=== PATIENT | male | born 1990 | race Caucasian/White ===

== ENCOUNTER 2016-11-07 21:23 | Emergency (ER) | payer OTHER ==
[2016-11-07] MEDS ORDERED: ACETAMINOPHEN 325 MG TAB As Ordered ONE (23:20)
--- NOTE | 2016-11-07 23:26 | EDDOCDS ---
Nurse's Notes [facility] Name: Morris Caldwell Age: 25 yrs Sex: Male : 1990 Arrival Date: 11/07/2016 Time: 21:23 Bed TR7 Private MD: KWAME Diagnosis: Contusion of other part of head;Unspecified injury of head Presentation: 11/07 21:40 Presenting complaint: Patient states: that he was playing volley ball and fell ms18 backwards hitting his head. pt states that he felt a little dizzy and wanted to make sure he was ok. Pt drinking water with no issues in triage. This patient has no additional risk factors. Mechanism of Injury: resulted from playing sports. Adult Sepsis Screening: The patient does not have new or worsening altered mentation. Patient's respiratory rate is less than 22. Systolic blood pressure is greater than 100. Patient has a qSOFA score of 0- Negative Sepsis Screen. Suicide/Homicide risk assessment- the patient denies having any suicidal and/or homicidal ideations and does not present with any other emotional, behavioral or mental health complaints. Status: The patient is a dependent. Transition of care: patient was not received from another setting of care. 21:40 Acuity: FLAKITO Level 4 ms18 21:40 Method Of Arrival: Walkin/Carried/Asstd ms18 Triage Assessment: 21:42 General: Appears in no apparent distress, comfortable, Behavior is appropriate for age, ms18 cooperative. Pain: Location: forehead Pain currently is 2 out of 10 on a pain scale. HIV screening NA for this visit Offered previously. Neurological: Level of Consciousness is awake, alert, obeys commands, Oriented to person, place, time, Reports dizziness, headache. Respiratory: Airway is patent Respiratory effort is even, unlabored. GI: Abdomen is non- distended Denies nausea, vomiting. Derm: Skin is pink, warm & dry. normal. Historical: - Allergies: no known allergies; - Home Meds: 1. none - PMHx: none; - PSHx: none; - Social history: Smoking status: Patient states was never smoker of tobacco. No barriers to communication noted, The patient speaks fluent [place]. - Family history: Not pertinent. - : The pt / caregiver states he / she is not on anticoagulants. Home medication list is obtained from the patient. - Exposure Risk Screening:: None identified. Screenin:23 Screening information is obtained from the patient. Fall risk: No risks identified. jmb Assistance ADL's: requires no assistance with activities of daily living. Abuse/DV Screen: The patient / caregiver reports he/she is: not in a situation that causes fear, pain or injury. Nutritional screening: No deficits noted. Advance Directives: Currently, there is no health care proxy. There is no active DNR order. There is no living will. There is no Power of Director Medical. home support is adequate. Assessment: 23:23 General: Patient instructed on discharge instructions. Patient asked if there were any jmb questions regarding discharge, patient stated no. Patient signed discharge instructions. Patient discharged in stable condition. . Vital Signs: 21:24 BP 111 / 68; Pulse 88; Resp 18 S; Temp 97.2(O); Pulse Ox 98% on R/A; Weight 70.31 kg dd6 (R); Height 5 ft. 10 in. (177.80 cm) (R); 23:23 BP 112 / 60; Pulse 80; Resp 18; Temp 97.0(O); Pulse Ox 99% on R/A; Pain 0/10; jmb 21:24 Body Mass Index 22.24 (70.31 kg, 177.80 cm) dd6 Vitals: 21:24 Log In Time: November 07, 2016 at 21:22. dd6 [place] Coma Score: 21:40 Eye Response: spontaneous(4). Verbal Response: oriented(5). Motor Response: obeys ms18 commands(6). Total: 15. ED Course: 21:24 Patient visited by Rom Mark PCA. dd6 21:24 KWAME is Private Physician. dd6 21:24 Patient moved to Waiting dd6 21:30 Patient moved to Pre RCE dd6 21:42 Triage Initiated ms18 22:54 Patient moved to Triage 1 pml 23:01 Morris Niño PA is PHCP. mo1 23:01 Levy Winters DO is Attending Physician. mo1 23:08 Patient visited by Morris Niño PA. mo1 23:20 KWAME is Referral Physician. mo1 23:23 Patient moved to TR7 ar3 23:23 The patient / caregiver is instructed regarding the plan of care and ED course. jmb 23:23 No IV's were initiated during this patient's visit. No procedures done that require jmb assistance. Administered Medications: 23:22 Drug: Acetaminophen 975 mg [acetaminophen 325 mg tablet (3 tabs)] Route: PO; jmb Order Results: There are currently no results for this order. Outcome: 23:20 Discharge ordered by Provider. mo1 23:23 Discharge Assessment: Patient awake, alert and oriented x 3. No cognitive and/or jmb functional deficits noted. Patient verbalized understanding of disposition instructions. Patient awake and alert. obeys commands, Oriented to person, place and time. Patient verbalized understanding of disposition instructions. Patient has no functional deficits. patient administered narcotics - no. The following High Risk Discharge criteria are identified: None. Discharged to home ambulatory. Condition: stable. Discharge instructions given to patient, Instructed on discharge instructions, follow up and referral plans. Demonstrated understanding of instructions, Pt was receptive of discharge instructions/ teaching. No special radiology studies were completed. Property sent home with patient. 23:25 Patient left the ED. jmb Signatures: Rom Mark, PAINTER APPRENTICE PAINTER APPRENTICE dd6 Shivani Marks, PAINTER APPRENTICE PAINTER APPRENTICE ar3 Deb ChowRN RN Morris Shah PA PA mo1 Joseluis Brown RN RN jmb Smith, Mallory, RN RN ms18 MTDD
--- NOTE | 2016-11-07 23:26 | EDDOCDS ---
Physician Documentation [facility] Name: Morris Caldwell Age: 25 yrs Sex: Male : 1990 Arrival Date: 11/07/2016 Time: 21:23 Bed TR7 Private MD: KWAME Disposition: 11/07/16 23:20 Discharged to Home/Self Care. Impression: Contusion of other part of head, Unspecified injury of head. - Condition is Stable. - Discharge Instructions: Facial or Scalp Contusion, Head Injury, Adult. - Medication Reconciliation, Local Pharmacy Hours form. - Follow up: KWAME; When: Call to arrange an appointment; Reason: Recheck today's complaints, Continuance of care. - Problem is new. - Symptoms are unchanged. Historical: - Allergies: no known allergies; - Home Meds: 1. none - PMHx: none; - PSHx: none; - Social history: Smoking status: Patient states was never smoker of tobacco. No barriers to communication noted, The patient speaks fluent [place]. - Family history: Not pertinent. - : The pt / caregiver states he / she is not on anticoagulants. Home medication list is obtained from the patient. - Exposure Risk Screening:: None identified. Vital Signs: 11/07 21:24 BP 111 / 68; Pulse 88; Resp 18 S; Temp 97.2(O); Pulse Ox 98% on R/A; Weight 70.31 kg / dd6 155.01 lbs (R); Height 5 ft. 10 in. (177.80 cm) (R); 23:23 BP 112 / 60; Pulse 80; Resp 18; Temp 97.0(O); Pulse Ox 99% on R/A; Pain 0/10; jmb 21:24 Body Mass Index 22.24 (70.31 kg, 177.80 cm) dd6 [place] Coma Score: 21:40 Eye Response: spontaneous(4). Verbal Response: oriented(5). Motor Response: obeys ms18 commands(6). Total: 15. MDM: 23:19 Acetaminophen Tablet 975 mg PO once ordered. mo1 Administered Medications: 23:22 Drug: Acetaminophen 975 mg [acetaminophen 325 mg tablet (3 tabs)] Route: PO; sasha Signatures: Morris Niño PA PA mo1 Joseluis Brown RN RN jmb Darcy Chavira,MIROSLAVA RN ms18 TOM
--- NOTE | 2016-11-10 00:26 | EDDOCDS ---
Nurse's Notes [facility] Name: Morris Caldwell Age: 25 yrs Sex: Male : 1990 Arrival Date: 11/07/2016 Time: 21:23 Bed TR7 Private MD: KWAME Diagnosis: Contusion of other part of head;Unspecified injury of head Presentation: 11/07 21:40 Presenting complaint: Patient states: that he was playing volley ball and fell ms18 backwards hitting his head. pt states that he felt a little dizzy and wanted to make sure he was ok. Pt drinking water with no issues in triage. This patient has no additional risk factors. Mechanism of Injury: resulted from playing sports. Adult Sepsis Screening: The patient does not have new or worsening altered mentation. Patient's respiratory rate is less than 22. Systolic blood pressure is greater than 100. Patient has a qSOFA score of 0- Negative Sepsis Screen. Suicide/Homicide risk assessment- the patient denies having any suicidal and/or homicidal ideations and does not present with any other emotional, behavioral or mental health complaints. Status: The patient is a dependent. Transition of care: patient was not received from another setting of care. 21:40 Acuity: FLAKITO Level 4 ms18 21:40 Method Of Arrival: Walkin/Carried/Asstd ms18 Triage Assessment: 21:42 General: Appears in no apparent distress, comfortable, Behavior is appropriate for age, ms18 cooperative. Pain: Location: forehead Pain currently is 2 out of 10 on a pain scale. HIV screening NA for this visit Offered previously. Neurological: Level of Consciousness is awake, alert, obeys commands, Oriented to person, place, time, Reports dizziness, headache. Respiratory: Airway is patent Respiratory effort is even, unlabored. GI: Abdomen is non- distended Denies nausea, vomiting. Derm: Skin is pink, warm & dry. normal. Historical: - Allergies: no known allergies; - Home Meds: 1. none - PMHx: none; - PSHx: none; - Social history: Smoking status: Patient states was never smoker of tobacco. No barriers to communication noted, The patient speaks fluent Spanish. - Family history: Not pertinent. - : The pt / caregiver states he / she is not on anticoagulants. Home medication list is obtained from the patient. - Exposure Risk Screening:: None identified. Screenin:23 Screening information is obtained from the patient. Fall risk: No risks identified. jmb Assistance ADL's: requires no assistance with activities of daily living. Abuse/DV Screen: The patient / caregiver reports he/she is: not in a situation that causes fear, pain or injury. Nutritional screening: No deficits noted. Advance Directives: Currently, there is no health care proxy. There is no active DNR order. There is no living will. There is no Power of Clinical Rehab Specialist. home support is adequate. Assessment: 23:23 General: Patient instructed on discharge instructions. Patient asked if there were any jmb questions regarding discharge, patient stated no. Patient signed discharge instructions. Patient discharged in stable condition. . Vital Signs: 21:24 BP 111 / 68; Pulse 88; Resp 18 S; Temp 97.2(O); Pulse Ox 98% on R/A; Weight 70.31 kg dd6 (R); Height 5 ft. 10 in. (177.80 cm) (R); 23:23 BP 112 / 60; Pulse 80; Resp 18; Temp 97.0(O); Pulse Ox 99% on R/A; Pain 0/10; jmb 21:24 Body Mass Index 22.24 (70.31 kg, 177.80 cm) dd6 Vitals: 21:24 Log In Time: November 07, 2016 at 21:22. dd6 [place] Coma Score: 21:40 Eye Response: spontaneous(4). Verbal Response: oriented(5). Motor Response: obeys ms18 commands(6). Total: 15. ED Course: 21:24 Patient visited by Rom Mark PCA. dd6 21:24 KWAME is Private Physician. dd6 21:24 Patient moved to Waiting dd6 21:30 Patient moved to Pre RCE dd6 21:42 Triage Initiated ms18 22:54 Patient moved to Triage 1 pml 23:01 Morris Niño PA is PHCP. mo1 23:01 Levy Winters DO is Attending Physician. mo1 23:08 Patient visited by Morris Niño PA. mo1 23:20 KWAME is Referral Physician. mo1 23:23 Patient moved to TR7 ar3 23:23 The patient / caregiver is instructed regarding the plan of care and ED course. jmb 23:23 No IV's were initiated during this patient's visit. No procedures done that require jmb assistance. 11/08 10:01 T-Sheet-- Draft Copy was scanned into [employer] and attached to record. gb Administered Medications: 11/07 23:22 Drug: Acetaminophen 975 mg [acetaminophen 325 mg tablet (3 tabs)] Route: PO; jmb Order Results: There are currently no results for this order. Outcome: 23:20 Discharge ordered by Provider. mo1 23:23 Discharge Assessment: Patient awake, alert and oriented x 3. No cognitive and/or jmb functional deficits noted. Patient verbalized understanding of disposition instructions. Patient awake and alert. obeys commands, Oriented to person, place and time. Patient verbalized understanding of disposition instructions. Patient has no functional deficits. patient administered narcotics - no. The following High Risk Discharge criteria are identified: None. Discharged to home ambulatory. Condition: stable. Discharge instructions given to patient, Instructed on discharge instructions, follow up and referral plans. Demonstrated understanding of instructions, Pt was receptive of discharge instructions/ teaching. No special radiology studies were completed. Property sent home with patient. 23:25 Patient left the ED. jmb Signatures: Tangela Dennis, Reg Reg gb Rom Mark, PSYCHODRAMATIST PSYCHODRAMATIST dd6 Shivani Marks, PSYCHODRAMATIST PSYCHODRAMATIST ar3 Deb Chow,RN Morris Colvin PA PA mo1 Joseluis Brown RN RN jmb Smith, Mallory, RN RN ms18 Chart Complete MTDD
--- NOTE | 2016-11-10 00:26 | EDDOCDS ---
Physician Documentation [facility] Name: Morris Caldwell Age: 25 yrs Sex: Male : 1990 Arrival Date: 11/07/2016 Time: 21:23 Bed TR7 Private MD: KWAME Disposition: 11/07/16 23:20 Discharged to Home/Self Care. Impression: Contusion of other part of head, Unspecified injury of head. - Condition is Stable. - Discharge Instructions: Facial or Scalp Contusion, Head Injury, Adult. - Medication Reconciliation, Local Pharmacy Hours form. - Follow up: KWAME; When: Call to arrange an appointment; Reason: Recheck today's complaints, Continuance of care. - Problem is new. - Symptoms are unchanged. Historical: - Allergies: no known allergies; - Home Meds: 1. none - PMHx: none; - PSHx: none; - Social history: Smoking status: Patient states was never smoker of tobacco. No barriers to communication noted, The patient speaks fluent [place]. - Family history: Not pertinent. - : The pt / caregiver states he / she is not on anticoagulants. Home medication list is obtained from the patient. - Exposure Risk Screening:: None identified. Vital Signs: 11/07 21:24 BP 111 / 68; Pulse 88; Resp 18 S; Temp 97.2(O); Pulse Ox 98% on R/A; Weight 70.31 kg / dd6 155.01 lbs (R); Height 5 ft. 10 in. (177.80 cm) (R); 23:23 BP 112 / 60; Pulse 80; Resp 18; Temp 97.0(O); Pulse Ox 99% on R/A; Pain 0/10; jmb 21:24 Body Mass Index 22.24 (70.31 kg, 177.80 cm) dd6 [place] Coma Score: 21:40 Eye Response: spontaneous(4). Verbal Response: oriented(5). Motor Response: obeys ms18 commands(6). Total: 15. MDM: 23:19 Acetaminophen Tablet 975 mg PO once ordered. mo1 11/08 10:01 T-Sheet-- Draft Copy was scanned into [employer] and attached to record. gb Administered Medications: 11/07 23:22 Drug: Acetaminophen 975 mg [acetaminophen 325 mg tablet (3 tabs)] Route: PO; sasha Signatures: Tangela Dennis, Reg Reg gb Morris Niño PA PA mo1 Joseluis Brown,RN RN leslieb Darcy Chavira RN RN ms18 The chart was reviewed and I authenticate all verbal orders and agree with the evaluation and treatment provided.Attachments: 11/08 10:01 T-Sheet-- Draft Copy gb Chart Complete MTDD
--- NOTE | 2016-11-10 00:26 | EDDOCDS ---
Physician Documentation [facility] Name: Morris Caldwell Age: 25 yrs Sex: Male : 1990 Arrival Date: 11/07/2016 Time: 21:23 Bed TR7 Private MD: KWAME Disposition: 11/07/16 23:20 Discharged to Home/Self Care. Impression: Contusion of other part of head, Unspecified injury of head. - Condition is Stable. - Discharge Instructions: Facial or Scalp Contusion, Head Injury, Adult. - Medication Reconciliation, Local Pharmacy Hours form. - Follow up: KWAME; When: Call to arrange an appointment; Reason: Recheck today's complaints, Continuance of care. - Problem is new. - Symptoms are unchanged. Historical: - Allergies: no known allergies; - Home Meds: 1. none - PMHx: none; - PSHx: none; - Social history: Smoking status: Patient states was never smoker of tobacco. No barriers to communication noted, The patient speaks fluent [place]. - Family history: Not pertinent. - : The pt / caregiver states he / she is not on anticoagulants. Home medication list is obtained from the patient. - Exposure Risk Screening:: None identified. Vital Signs: 11/07 21:24 BP 111 / 68; Pulse 88; Resp 18 S; Temp 97.2(O); Pulse Ox 98% on R/A; Weight 70.31 kg / dd6 155.01 lbs (R); Height 5 ft. 10 in. (177.80 cm) (R); 23:23 BP 112 / 60; Pulse 80; Resp 18; Temp 97.0(O); Pulse Ox 99% on R/A; Pain 0/10; jmb 21:24 Body Mass Index 22.24 (70.31 kg, 177.80 cm) dd6 [place] Coma Score: 21:40 Eye Response: spontaneous(4). Verbal Response: oriented(5). Motor Response: obeys ms18 commands(6). Total: 15. MDM: 23:19 Acetaminophen Tablet 975 mg PO once ordered. mo1 11/08 10:01 T-Sheet-- Draft Copy was scanned into [employer] and attached to record. gb Administered Medications: 11/07 23:22 Drug: Acetaminophen 975 mg [acetaminophen 325 mg tablet (3 tabs)] Route: PO; sasha Signatures: Tangela Dennis, Reg Reg gb Morris Niño PA PA mo1 Joseluis Brown,RN RN leslieb Darcy Chavira RN RN ms18 The chart was reviewed and I authenticate all verbal orders and agree with the evaluation and treatment provided.Attachments: 11/08 10:01 T-Sheet-- Draft Copy gb Chart Complete MTDD
== END 2016-11-07 23:25 | disposition home or self-care (01) ==
LOC: M ED 21:23
DX: S00.93XA Contusion of unspecified part of head, initial encounter (principal); W18.09XA Striking against other object with subsequent fall, initial encounter; Y92.39 Other specified sports and athletic area as the place of occurrence of the external cause; Y93.68 Activity, volleyball (beach) (court); Y99.8 Other external cause status

== ENCOUNTER 2018-10-21 18:53 | Emergency (ER) | payer OTHER ==
[~2018-10-21] VITALS: Ht 175.3 cm; Wt 81.8 kg
[2018-10-21] MEDS ORDERED: IBUPROFEN 800 MG TAB PO ONE (19:30)
[2018-10-21] MEDS ORDERED: CEPHALEXIN 500 MG CAP PO ONE (19:45)
[2018-10-21] MEDS ORDERED: KEFL500C17 PO (20:14)
[2018-10-21 20:22] VITALS: BP 125/77
--- NOTE | 2018-10-22 07:43 | REP ---
Clinical: Trauma. Technique: AP, lateral, bilateral oblique views of the left fifth digit. Findings: Soft tissue laceration at the terminal tuft noted. No obvious acute fracture or dislocation identified. Impression: Laceration. No acute fracture. Electronically Signed by Sony Perry MD 10/22/2018 07:35 A
== END 2018-10-21 20:23 | disposition home or self-care (01) ==
LOC: M ED 18:53
DX: S62.602B Fracture of unspecified phalanx of right middle finger, initial encounter for open fracture (principal); S61.305A Unspecified open wound of left ring finger with damage to nail, initial encounter; W27.0XXA Contact with workbench tool, initial encounter; Y92.018 Other place in single-family (private) house as the place of occurrence of the external cause

== ENCOUNTER 2025-07-13 16:52 | Emergency (ER) | payer OTHER ==
[~2025-07-13] VITALS: Ht 175.3 cm; Wt 86.7 kg
[~2025-07-13 16:52] MED LIST: KEFL500C17 PO
[2025-07-13] MEDS: ONDANSETRON 4MG 2ML VIAL IV ONE (19:24)
[2025-07-13] MEDS: MORPHINE 4 MG/ML 1 ML VIAL IV PRN ×2 (19:25→20:37)
[2025-07-13] MEDS: TETANUS/DIPHTH/ACEL. PERTUSSIS 0.5 ML SYR IM.IMMUN ONE (19:43)
[2025-07-13] MEDS ORDERED: ceFAZolin SOD 2 GM in DEXTROSE 5% (D5W) ADV/MINI-BAG 50 ML IV ONE (20:05)
[2025-07-13] MEDS ORDERED: CEPHALEXIN 500 MG CAP PO ONE (20:15)
[2025-07-13] MEDS ORDERED: CEPH500C PO (20:16)
[2025-07-13] MEDS: LIDOCAINE 1% MDV 20 ML VIAL IM ONE (20:40)
[2025-07-13] MEDS: ceFAZolin SODIUM 2 GM in DEXTROSE 5% (D5W) ADV/MINI-BAG 50 ML IV ONE (21:04)
[2025-07-13] MEDS: NS (Normal Saline) 0.9% 1,000 ML IV ONE (21:15)
[2025-07-13] MEDS: NEOSPORIN TOP OINT 15 GM TOP ONE (21:43)
[2025-07-13 23:08] VITALS: BP 112/78; TEMP 97.6; O2SAT 96
[2025-07-13] MEDS ORDERED: AMOX875T2 PO (23:21)
[2025-07-13] MEDS ORDERED: HYDR-3713 PO (23:25)
[2025-07-14] MEDS: NORCO 5/325MG TABLET (HOME DOSE PACK) PO ONE (00:07)
== END 2025-07-14 00:09 | disposition home or self-care (01) ==
LOC: M ED 16:52
DX: S61.432A Puncture wound without foreign body of left hand, initial encounter (principal); Y92.019 Unspecified place in single-family (private) house as the place of occurrence of the external cause; Y93.9 Activity, unspecified; Y99.9 Unspecified external cause status; W29.4XXA Contact with nail gun, initial encounter; Z23 Encounter for immunization; Z79.1 Long term (current) use of non-steroidal anti-inflammatories (NSAID); Z79.2 Long term (current) use of antibiotics
CPT/HCPCS: 10120; 73140; 90471; 90715; 96365; 96372; 96375; 96376; 99284; J0688; J2060; J2405

== ENCOUNTER → 2025-07-24 | Outpatient (CLI) | payer OTHER ==
[~2025-07-24] MED LIST changes: +AMOX875T2 PO; +CEPH500C PO; +HYDR-3713 PO
== END ==
LOC: M SOG 07:19
PROVIDERS: ATTEND Physician Assistant
DX: S61.233D Puncture wound without foreign body of left middle finger without damage to nail, subsequent encounter (principal); W18.30XD Fall on same level, unspecified, subsequent encounter